=== PATIENT | female | born 1975 | race Caucasian/White ===

== ENCOUNTER 2018-02-17 13:10 | Emergency (ER) | payer OTHER ==
[2018-02-17] MEDS ORDERED: 0.9 % SODIUM CHLORIDE 1,000 ML IV ONE (13:29)
[2018-02-17] MEDS ORDERED: PROMETHAZINE HCL 25 MG in 0.9 % SODIUM CHLORIDE 50 ML IV ONE (13:30)
[2018-02-17] MEDS ORDERED: KETOROLAC TROMETHAMINE 30 MG/1ML VIAL IVP ONE (13:30)
[2018-02-17] MEDS ORDERED: diphenhydrAMINE HCL 50 MG/ML VIAL IVP ONE (13:33)
--- NOTE | 2018-02-17 13:36 | ED Physician Documentation ---
Headache - HISTORIAN Historian: patient - HPI Stated Complaint: migraine Chief Complaint: Headache Additional Information: Intro self as AQUATICS SPECIALIST. Pt presents to the ED via POV c/o migraine that she woke up with this morning at 0700. pt describes the pain as constant throbbing/aching 10/05. Pt reports it is similar to previous headaches although today she has had emesis x 2 and is unable to take her oral amitriptyline PRN. pt denies visual disturbances, chest pain, dyspnea, rash, fever, syncope, diarrhea, constipation, dysuria, dizziness, near syncope/syncope. Pt has a migraine hx and sees a neurologist in [facility]. MRI one year ago unremarkable. 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 pain unchanged since that time. ) Exposure To: none. denies: recent head injury Severity: moderate Quality: similar to previous Associated Symptoms: nausea, vomiting. denies: fever, chills, sweating, problems with vision, sensitivity to light, neck pain, stiffness, speech problems, weakness, trouble walking, tingling, numbness, dizziness, light- headedness Preceding Symptoms: denies: visual disturbance, typical of prior aura(s) Exacerbated By: movement - ROS NEURO/PSYCH: denies: confusion, anxiety, depression, fainting EYES/ENT: denies: sore throat, difficulty swallowing, sinus pain, drainage CVS/RESP: none. denies: chest pain, shortness of breath, cough GI/: denies: abdominal pain, diarrhea, problems urinating, incontinence MS/SKIN/LYMPH: denies: muscle aches, rash, skin lesions, swollen glands all systems neg except as marked: Yes - PAST HX Medical History: hypertension, migraines Surgical History: other (nasal septal repair) Allergies/Adverse Reactions: Allergies Allergy/AdvReac Type Severity Reaction Status Date / Time No Known Allergies Allergy Verified 02/17/18 13:24 Home Medications: Ambulatory Orders Medication Instructions Recorded Amitriptyline HCl 25 mg PO DIRECTED PRN 08/17/15 Promethazine HCl [Phenergan] 25 mg RC Q8 PRN #12 supp.rect 02/17/18 - SOCIAL HX Smoking History: non-smoker Alcohol Use: none Drug Use: none - Family HX Family History: none - VITAL SIGNS Vital Signs: Vital Signs Temp Pulse Resp BP Pulse Ox 97.0 F L 104 H 16 147/64 95 02/17/18 13:13 02/17/18 15:30 02/17/18 13:13 02/17/18 15:30 02/17/18 15:30 - REVIEWED ASSESSMENTS Nursing Assessment Reviewed: Yes Vitals Reviewed: Yes Progress - Results/Orders Results/Orders: 1500- pt reports improvement in nausea and headache 06/07. pt reports readiness for D/c. pt declines any further medication. ED Results Lab/Radiology - Orders Orders: ED Orders Category Date Time Status Continuous Pulse Oximetry Q1H Care 02/17/18 14:[address] IV Lock 1T Care 02/17/18 13:29 Active 0.9 % Sodium Chloride [Normal Saline] 1,000 ml Med 02/17/18 13:29 Discontinued IV Q1H 0.9 % Sodium Chloride [Sodium Chloride] 100 ml Med 02/17/18 13:42 Discontinued IV .STK-MED Ketorolac Tromethamine [Toradol] Med 02/17/18 13:30 Discontinued 30 mg IVP NOW ONE Promethazine HCl [Phenergan] Med 02/17/18 13:42 Discontinued 25 mg .ROUTE .STK-MED ONE Promethazine HCl [Phenergan] 25 mg Med 02/17/18 13:30 Discontinued 0.9 % Sodium Chloride [Sodium Chloride] 50 ml IV NOW diphenhydrAMINE HCL [Benadryl] Med 02/17/18 13:33 Discontinued 25 mg IVP NOW ONE Headache Physical Exam - EXAM General Appearance: alert, mild distress EENT: eyes nml inspection, PERRL, photophobia, pharynx nml. No: no facial swelling, tender temporal artery, pain over sinuses, pale conjunctivae, EOM palsy, unequal pupils, pharyngeal erythema, tonsillar exudate Neck: normal inspection, thyroid normal. No: lymphadenopathy, stiff neck, Kernig's, carotid bruit, meningismus, Brudzinski's Respiratory: no resp distress. No: wheezes, rales, rhonchi CVS: reg. rate & rhythm, heart sounds nml. No: murmur Abdomen: non-tender, no organomegaly, nml bowel sounds, no distention Skin: color nml, no rash Extremitites: non-tender, normal range of motion, no evidence of injury, no fiorella ma - NEURO/PSYCH Higher Functions: alert, oriented x3, nml speech, mood/affect nml Cranial: nml as tested, no evidence of acute CVA. denies: sensory deficit, numbness Sensorimotor: motor nml, sensation nml. denies: weakness Discharge Clincal Impression: Migraine Qualifiers: Migraine type: unspecified Status migrainosus presence: without status migrainosus Intractability: not intractable Qualified Code(s): G43.909 - Migraine, unspecified, not intractable, without status migrainosus Prescriptions: Promethazine HCl [Phenergan] 25 mg RC Q8 PRN #12 supp.rect PRN Reason: Nausea / Vomiting Referrals: Kimberly Loja, [id number] [Primary Care Provider] - 2 Days Additional Instructions: Continue home medications Phenergan suppositories 25 mg 1/2 - 1 suppository every 8 hours as needed for nausea. increase hydration Rest Follow up with neurology DARIN. Return if worse. Chest pain, shortness of breath, uncontrollable fever after tylenol or motrin, unable to keep down fluids, or any concern. -UNDERSTAND THAT THIS IS AN EMERGENCY EVALUATION FOR YOUR COMPLAINT TODAY AND BY NATURE IS LIMITED AND NOT A SUBSTITUTE FOR ONGOING MEDICAL CARE. AND THAT EVEN THOUGH TEST RESULTS AND TREATMENT PLAN WERE EXPLAINED THERE MAY BE A NEED FOR ADDITIONAL TESTING TO FULLY DETERMINE THE EXTENT OF YOUR ILLNESS/INJURY/OR CONCERN SO YOU SHOULD CONTACT AND OR ESTABLISH WITH A PRIMARY CARE PROVIDER (OR REFERRAL DOCTOR IF APPLICABLE) FOR AN APPOINTMENT SOON POSSIBLE. Condition: Good Disposition: 01 HOME, SELF-CARE Decision to Admit: NO Date of Decison to Admit: 02/17/18 Decision Time: 15:21
[2018-02-17] MEDS ORDERED: 0.9 % SODIUM CHLORIDE 100 ML IV ONE (13:42)
[2018-02-17] MEDS ORDERED: PROMETHAZINE HCL 25 MG/ML VIAL ONE (13:42)
[2018-02-17 15:39] VITALS: BP 147/64
== END 2018-02-17 15:30 | disposition home or self-care (01) ==
LOC: ED 13:10
DX: G43.909 Migraine, unspecified, not intractable, without status migrainosus (principal)
CPT/HCPCS: J1200; J1885; J2550; J7030; 96365; 96375; S1016